=== PATIENT | female | born 1940 | race Caucasian/White ===

== ENCOUNTER → 2022-09-15 | Day surgery (SDC) | payer MEDICARE, BC ==
[2022-09-15 07:22] VITALS: RESP 16
--- NOTE | 2022-09-15 08:11 | P.GSHP ---
History of Present Illness H&P Date: 09/15/22 Chief Complaint: Right breast mammogram abnormal Char is a 81-year-old white female who underwent a bilateral mammogram on 98. This revealed a lesion of concern in the right breast for which additional views [place] ultrasound [place] [address]. The ultrasound did not reveal any lesions of concern. The mammogram revealed a mass within the right breast in the retroareolar middle region. She is seen in consultation for Dr. Robles. He has never had any surgery on her breast. She does not feel any lumps masses or notches of concern in either breast. She has not had any recent trauma or infection in the breast. She is not complaining of any nipple discharge. caffiene: 4 cups/day of coffee nicotine: none chocolate: occasional hormones: BCP when she was in her 20's, uses a vaginal cream (estrogen) for itching weekly Family History: maternal aunt: breast cancer 30's Hormonal History: menarche: 14 , breast fed: yes, age at first : 20 menopause: got an injection for bleeding starting in late 40's and this stopped her periods Surgical history: gallbladder D&C rotator cuff bilateral knee foot carpel tunnel cataract surgery Medical History: hypothyroid Social History: smoke: none alcohol: none drugs: none - Constitutional Constitutional: Denies chills, Denies fever - EENT Eyes: bilateral as per HPI, denies blurred vision, denies pain Ears: bilateral: tinnitus, deny: decreased hearing Ears, nose, mouth and throat: Denies headache, Denies sore throat - Breasts Breasts: bilateral: as per HPI - Cardiovascular Cardiovascular: Denies chest pain, Denies shortness of breath - Respiratory Respiratory: Denies cough, Denies 7 - Gastrointestinal Gastrointestinal: Denies abdominal pain, Denies diarrhea, Denies nausea, Denies vomiting - Genitourinary (Female) Comment: UTI Genitourinary: Reports vaginal itching, Denies dysuria, Denies hematuria - Menstruation Menstruation: Reports postmenopausal - Musculoskeletal Musculoskeletal: Reports as per HPI - Integumentary Integumentary: Reports pruritus - Neurological Neurological: Denies numbness, Denies weakness - Psychiatric Psychiatric: Denies anxiety, Denies depression - Endocrine Comment: hypothyroid Endocrine: Denies fatigue, Denies weight change - Hematologic/Lymphatic Comment: none - Allergic/Immunologic Allergic/Immunologic: Reports seasonal allergies Past Medical History Past Medical History: Thyroid Disorder Additional Past Medical History / Comment(s): Allergies History of Any Multi-Drug Resistant Organisms: None Reported Past Surgical History: Cholecystectomy Additional Past Surgical History / Comment(s): Left shoulder rotator cuff repair. Left knee meniscus repair Past Anesthesia/Blood Transfusion Reactions: No Reported Reaction Past Psychological History: No Psychological Hx Reported Smoking Status: Never smoker Past Alcohol Use History: None Reported Past Drug Use History: None Reported Medications and Allergies Home Medications Medication Instructions Recorded Confirmed Type Cetirizine HCl 10 mg PO DAILY 09/08/22 09/15/22 History Fluticasone Nasal [place] [Flonase 2 spray EA NOSTRIL DAILY 09/08/22 09/15/22 History Nasal [place]] Levothyroxine Sodium [Synthroid] 100 mcg PO DAILY 09/08/22 09/15/22 History Omeprazole 40 mg PO DAILY 09/08/22 09/15/22 History Allergies Allergy/AdvReac Type Severity Reaction Status Date / Time piroxicam [From Feldene] Allergy Unknown Verified 09/15/22 07:28 terfenadine [From Seldane] Allergy Unknown Verified 09/15/22 07:28 Tetanus Vaccines and Toxoid Allergy Swelling Verified 09/15/22 07:28 Surgical - Exam Vital Signs Temp Pulse Resp BP 97.5 F L 63 16 126/64 09/15/22 07:15 09/15/22 07:15 09/15/22 07:15 09/15/22 07:15 BMI: 39.1 - General no distress - Eyes normal ocular movement - Neck trachea midline - Respiratory normal respiratory effort, clear to auscultation - Cardiovascular Heart Sounds: normal: S1, S2 - Abdomen Abdomen: soft, non tender, no guarding, no rigid, no rebound - Integumentary normal turgor - Neurologic no disoriented, no combative - Musculoskeletal normal gait - Psychiatric oriented to time, oriented to person, oriented to place, speech is normal, memory intact Breast Examination: BRA: 42D inspection: Bilateral grade 3 ptosis Palpation: Right breast: Examination sitting up does not reveal any dominant masses or nodules of concern, fibrocystic changes Right axilla: No adenopathy of concern Left Breast: Examination sitting up does not reveal any dominant masses or nodules of concern Left axilla: No adenopathy of concern Results Mammogram reviewed with Dr. Conroy, small nodule seen in the right breast at approximately the 12 o'clock position in the mid breast Assessment and Plan Assessment: Impression: Abnormal right breast mammogram recommend stereotactic core biopsy Plan: Stereotactic core biopsy right breast Risk and benefits of the procedure discussed with the patient. Risks include but are not limited to bleeding, infection, reaction to the anesthetic. The lesion cannot be well seen in the procedure may be aborted. Additionally if the biopsy is discordant then tissue acquisition in the operating room may be recommended. The patient understands and wishes to proceed. Alternatives such as watchful waiting or resection the operating room are discussed but not recommended. Cc: Dr. Robles
[2022-09-15 09:05] VITALS: BP 133/70; PULSE 66; TEMP 98.1
--- NOTE | 2022-09-15 12:03 | MM ---
Date of Procedure: 09/15/22 Preoperative Diagnosis: Mammographic abnormality right breast; 12:00 mid position/density Postoperative Diagnosis: Same Procedure(s) Performed: Right breast stereotactic core biopsy Anesthesia: local Surgeon: Aviva Rodriguez Pathology: other (Breast tissue) Condition: stable Disposition: same day Indications for Procedure: Mammographic abnormality right breast mid position Operative Findings: Breast tissue fibrofatty Description of Procedure: The patient was brought to the stereotactic core biopsy room. She was positioned prone on the lo-rad table. A sports marketing coordinator film was obtained. A lateral to medial approach was utilized. The lesion of concern was identified. The lesion was targeted. The breast was prepped using Betadine. 26 mL of 1% lidocaine was used to anesthetize the area of concern in the breast. A 9-gauge rectum is cystic or rotating biopsy needle was driven to the correct coordinates. A prefire film was obtained. The needle appeared to be in the correct location. The needle was fired. Posterior film was not obtained as this was difficult to see secondary to the fact it was a nodule without calcifications. 12 core biopsy specimens were obtained. A secure marked top hat clip was left. A film was obtained and clip appeared to be in the correct location. The patient tolerated the procedure in stable condition. The patient will follow-up with Dr. Edwards in 1 week. The specimen is sent to pathology. [facility]
== END ==
LOC: RADMAMWWP 07:01
PROVIDERS: ATTEND Surgery
DX: N60.81 Other benign mammary dysplasias of right breast (principal); R92.8 Other abnormal and inconclusive findings on diagnostic imaging of breast; E03.9 Hypothyroidism, unspecified; Z98.890 Other specified postprocedural states; Z90.49 Acquired absence of other specified parts of digestive tract; Z80.3 Family history of malignant neoplasm of breast; Z79.890 Hormone replacement therapy; Z79.899 Other long term (current) drug therapy; Z88.1 Allergy status to other antibiotic agents; Z88.7 Allergy status to serum and vaccine
CPT/HCPCS: 88305; 19081; A4648; J2001

== ENCOUNTER → 2022-09-15 | Outpatient (CLI) | payer MEDICARE, BC ==
[2022-09-15 07:40] VITALS: RESP 17
--- NOTE | 2022-09-15 08:58 | P.PCN ---
Date of Procedure: 09/15/22 Preoperative Diagnosis: Mammographic abnormality right breast; 12:00 mid position/density Postoperative Diagnosis: Same Procedure(s) Performed: Right breast stereotactic core biopsy Anesthesia: local Surgeon: Aviva Rodriguez Pathology: other (Breast tissue) Condition: stable Disposition: same day Indications for Procedure: Mammographic abnormality right breast mid position Operative Findings: Breast tissue fibrofatty Description of Procedure: The patient was brought to the stereotactic core biopsy room. She was positioned prone on the lo-rad table. A bookkeeping assistant film was obtained. A lateral to medial approach was utilized. The lesion of concern was identified. The lesion was targeted. The breast was prepped using Betadine. 26 mL of 1% lidocaine was used to anesthetize the area of concern in the breast. A 9-gauge rectum is cystic or rotating biopsy needle was driven to the correct coordinates. A prefire film was obtained. The needle appeared to be in the correct location. The needle was fired. Posterior film was not obtained as this was difficult to see secondary to the fact it was a nodule without calcifications. 12 core biopsy specimens were obtained. A secure marked top hat clip was left. A film was obtained and clip appeared to be in the correct location. The patient tolerated the procedure in stable condition. The patient will follow-up with Dr. Edwards in 1 week. The specimen is sent to pathology. CC: DR. Robles
== END | disposition home or self-care (01) ==
LOC: WWCWWP 07:03
PROVIDERS: ATTEND Surgery
DX: Z53.9 Procedure and treatment not carried out, unspecified reason (principal)

== ENCOUNTER → 2022-09-23 | Outpatient (CLI) | payer MEDICARE, BC ==
[2022-09-23 15:10] VITALS: BP 138/82; PULSE 66; RESP 18; TEMP 97.6
--- NOTE | 2022-09-23 15:54 | P.PN ---
Progress Note - Text Progress Note Date: 09/23/22 Char is a 81 year old white female who is status post right breast are tactic core biopsy and [id number]. Pathology was benign fibrocystic changes including cyst and apocrine metaplasia. She tolerated the procedure without difficulty. Physical exam: Biopsy site mild ecchymosis and hematoma Plan: Right breast mammogram in 6 months with physician exam at that time CC: Dr. Robles
== END | disposition home or self-care (01) ==
LOC: WWCWWP 14:33
PROVIDERS: ATTEND Surgery
DX: Z53.9 Procedure and treatment not carried out, unspecified reason (principal)

== ENCOUNTER → 2023-03-17 | Outpatient (CLI) | payer BC, MEDICARE ==
--- NOTE | 2023-03-17 13:14 | MM ---
Reason for Exam: Follow-up at short interval from prior study. Last screening mammogram was performed 8 month(s) ago. Patient History: Menarche at age 15. First Full-Term at age 21. Hormonal Contraceptives for 10 years from age 42 until age 52. 09/15/2022, Benign MG stereo VAD BX RT on the right side. Risk Values: Anny 5 year model risk: 1.4%. NCI Lifetime model risk: 2.2%. Prior Study Comparison: 11/13/2020 Bilateral MG 3D screening mammo w/cad, [facility]. 07/27/2022 Right MG work up mamm w CAD RT, [facility]. Tissue Density: Right: There are scattered fibroglandular densities. Findings: Analyzed By CAD. Asymmetry which may represent a lymph node measuring 7 mm only visualized on the MLO view posteriorly in the upper breast. No suspicious group of microcalcifications within the right breast. Vascular calcifications noted. Previous mammotome biopsy clip within the right breast. Overall Assessment: Incomplete: need additional imaging evaluation, BI-RAD 0 Management: Diagnostic Breast Ultrasound of the right breast. A clinical breast exam by your physician is recommended on an annual basis and results should be correlated with mammographic findings. This exam should not preclude additional follow-up of suspicious palpable abnormalities. Results were given to the patient verbally at the time of exam. Electronically signed and approved by: Toribio Dyson D.O.
--- NOTE | 2023-03-17 13:52 | USB ---
Reason for Exam: Additional evaluation requested from prior study. Patient History: Menarche at age 15. First Full-Term at age 21. Hormonal Contraceptives for 10 years from age 42 until age 52. 09/15/2022, Benign MG stereo VAD BX RT on the right side. Risk Values: Anny 5 year model risk: 1.4%. NCI Lifetime model risk: 2.2%. Technique: Method: Targeted. Prior Study Comparison: 11/13/2020 Bilateral MG 3D screening mammo w/cad, [facility]. 07/27/2022 Right MG work up mamm w CAD RT, [facility]. Findings: The upper section of the breast of the right breast, the axilla of the right breast and the retroareolar of the right breast were scanned. Targeted ultrasound of the upper half of the right breast with additional evaluation of the nipple and axillary tail were performed. No solid or cystic lesion was identified. Overall Assessment: Probably benign, BI-RAD 3 Management: Diagnostic Mammogram of both breasts in 6 months. A clinical breast exam by your physician is recommended on an annual basis and results should be correlated with mammographic findings. This exam should not preclude additional follow-up of suspicious palpable abnormalities. Results were given to the patient verbally at the time of exam. Electronically signed and approved by: Toribio Dyson D.O.
== END | disposition home or self-care (01) ==
LOC: RADMAMWWP 12:42
PROVIDERS: ATTEND Surgery
DX: R92.8 Other abnormal and inconclusive findings on diagnostic imaging of breast (principal)
CPT/HCPCS: 77065; 76642; G0279; 77061

== ENCOUNTER → 2023-09-22 | Outpatient (CLI) | payer MEDICARE ==
--- NOTE | 2023-09-22 10:22 | MM ---
Reason for Exam: Follow-up at short interval from prior study. Last mammogram was performed 1 year(s) and 2 month(s) ago. Patient History: Menarche at age 15. First Full-Term at age 21. Hormonal Contraceptives for 10 years from age 42 until age 52. 09/15/2022, Benign MG stereo VAD BX RT on the right side. Risk Values: Anny 5 year model risk: 1.4%. NCI Lifetime model risk: 2.2%. Tissue Density: The breast tissue is almost entirely fat. Findings: Analyzed By CAD. Right breast biopsy clip. No new suspicious masses, calcifications or distortions. Overall Assessment: Benign, BI-RAD 2 Management: Screening Mammogram of both breasts in 1 year. Results were given to the patient verbally at the time of exam. Patient should continue monthly self-breast exams. A clinical breast exam by your physician is recommended on an annual basis. This exam should not preclude additional follow-up of suspicious palpable abnormalities. Note on Anny scores and lifetime risk: 1. A Anny score greater than 3% is considered moderate risk. If this is the case, consider specialist referral to assess eligibility for a risk reducing agent. 2. If overall lifetime risk for the development of breast cancer is 20% or higher, the patient may qualify for future screening with alternating mammogram and breast MRI. Electronically signed and approved by: Saleem Pierson DO
== END | disposition home or self-care (01) ==
LOC: RADMAMWWP 09:26
PROVIDERS: ATTEND Internal Medicine
DX: R92.313 Mammographic fatty tissue density, bilateral breasts (principal)
CPT/HCPCS: 77066; G0279; 77062

== ENCOUNTER → 2023-11-16 | Outpatient (CLI) | payer MEDICARE ==
--- NOTE | 2023-11-18 17:57 | MR ---
EXAMINATION TYPE: MR brain wo con DATE OF EXAM: 11/16/2023 COMPARISON: None HISTORY: Rt hand tremor, dizziness, tisha hearing loss CONTRAST: Performed utilizing 0 mL intravenous Gadobutrol gadolinium contrast. TECHNIQUE: Multiplanar, multiecho imaging on a 3.0 Candy magnet is performed through the brain. Stud y is performed within 24 hours of arrival to the hospital. The craniovertebral junction is normal. The pituitary is normal. Optic chiasm is visualized is norm al Diffusion-weighted imaging is performed. No abnormal hyperintensity is present to suggest an acute i ntracranial infarct or acute ischemic change. There are scattered small focal areas of hyperintensity on T2 and inversion recovery weighted sequenc es in the periventricular white matter and brainstem centrum semiovale. The largest on the right charles sures 0.7 cm in the right frontal centrum semiovale. Series 701 image 27. The largest on the left int erlobar region measuring 1.7 cm. Series 701 image 23. Central punctate area is in the brainstem. Seri es 701 image 13. Ventricles and sulci are prominent for the patient age. Internal auditory canals appear normal. Mastoid air cells are clear. IMPRESSION: 1. Scattered white matter changes which are nonspecific. Differential diagnosis could include chronic white matter ischemic change, migraine headaches, multiple sclerosis, vasculitis, Lyme disease.
== END | disposition home or self-care (01) ==
LOC: RADMRIMAIN 10:41
PROVIDERS: ATTEND Psychiatry & Neurology Neurology
DX: I67.9 Cerebrovascular disease, unspecified (principal); R90.82 White matter disease, unspecified; A69.20 Lyme disease, unspecified
CPT/HCPCS: 70551